=== PATIENT | male | born 1935 | race African-American/Black ===

== ENCOUNTER 2019-03-13 12:14 | Inpatient (IN) | payer MEDICARE, MEDICAID ==
[~2019-03-13] VITALS: Ht 188 cm; Wt 84.8 kg
[2019-03-13] MEDS ORDERED: SODIUM CHLORIDE 0.9% 1,000 ML IV ONE (13:00)
[2019-03-13 13:18] LABS: BASOPHILS % 0.5 % (0.0-2.0); EOSINOPHILS % 0.1 % (0.0-5.0); HEMATOCRIT. 35.9 % (42.0-52.0); HEMOGLOBIN. 12.1 g/dL (14.0-18.0); LYMPHOCYTES % 10.3 % (20.0-50.0); MEAN CORPUSCULAR HEMOGLOBIN 29.3 pg (28.0-32.0); MEAN CORPUSCULAR VOLUME 86.6 fL (80.0-94.0); MEAN PLATELET VOLUME 7.6 fl (7.4-10.4); MONOCYTES % 9.1 % (2.0-8.0); PLATELET 272 x1000/uL (130-400); RED BLOOD CELL COUNT 4.14 mill/uL (4.7-6.1); RED CELL DISTRIBUTION WIDTH 15.3 % (11.6-14.6)
[2019-03-13 13:22] LABS: CHLORIDE 107 mEq/L (98-107)
[2019-03-13 13:23] LABS: INR 1.2; PROTHROMBIN TIME 12.2 sec (9.6-11.0)
[2019-03-13 16:59] LABS: CLARITY URINE CLEAR (CLEAR); COLOR URINE DARK YELLOW (YELLOW); KETONES URINE NEGATIVE (NEGATIVE); LEUKOCYTE ESTERASE URINE NEGATIVE (NEGATIVE); NITRITE URINE NEGATIVE (NEGATIVE); OCCULT BLOOD URINE TRACE (NEGATIVE); PROTEIN URINE 2+ (NEGATIVE)
[2019-03-13] MEDS ORDERED: MORPHINE SULFATE 4 MG/ML CPJ (NOT FOR IM USE) IV ONE (17:45)
[2019-03-13] MEDS ORDERED: KETOROLAC 30MG/ML VIAL IV NR (19:00)
[2019-03-13 23:10] VITALS: BP 114/63
[2019-03-14] VITALS: BP 114/63
[2019-03-14] MEDS ORDERED: ONDANSETRON HCL 4MG/2ML INJ IV PRN
[2019-03-14] MEDS ORDERED: SODIUM CHL 0.45% + KCL 20MEQ/L 1,000 ML IV SCH (02:00)
[2019-03-14] MEDS ORDERED: FURO40TA5 MT (02:22)
[2019-03-14] MEDS ORDERED: CALC-988 MT (02:22)
[2019-03-14] MEDS ORDERED: ATOR20TA65 MT (02:22)
[2019-03-14] MEDS ORDERED: CHOL100022 MT (02:22)
[2019-03-14] MEDS ORDERED: PANT40TA4 MT (02:22)
[2019-03-14] MEDS ORDERED: FINA5TAB11 MT (02:22)
[2019-03-14] MEDS ORDERED: AMI2 MT (02:22)
[2019-03-14] MEDS ORDERED: BICA50TA7 MT (02:22)
[2019-03-14] MEDS ORDERED: BENA40TA9 MT (02:22)
[2019-03-14] MEDS ORDERED: AMLO5TAB88 MT (02:22)
[2019-03-14] MEDS ORDERED: TAMS0.4C31 MT (02:22)
[2019-03-14] MEDS ORDERED: CARV3.1242 MT (02:22)
[2019-03-14] MEDS: DEXT 5%/0.45% NACL KCL 20MEQ/L 1,000 ML IV SCH ×2 (03:24→16:47)
[2019-03-14 04:00] VITALS: BP 116/59
[2019-03-14 06:25] LABS: BASOPHILS % 0.2 % (0.0-2.0); HEMATOCRIT. 30.7 % (42.0-52.0); HEMOGLOBIN. 10.9 g/dL (14.0-18.0); LYMPHOCYTES % 15.7 % (20.0-50.0); MEAN CORPUSCULAR HEMOGLOBIN 29.7 pg (28.0-32.0); MEAN CORPUSCULAR VOLUME 83.6 fL (80.0-94.0); MEAN PLATELET VOLUME 7.7 fl (7.4-10.4); MONOCYTES % 13.9 % (2.0-8.0); NEUTROPHILS % 70.2 % (40.0-76.0); PLATELET 224 x1000/uL (130-400); RED BLOOD CELL COUNT 3.67 mill/uL (4.7-6.1); RED CELL DISTRIBUTION WIDTH 15.2 % (11.6-14.6)
[2019-03-14 06:48] LABS: CHLORIDE 108 mEq/L (98-107)
[2019-03-14] MEDS ORDERED: POTASSIUM CHLORIDE 20MEQ TABLET SR PO SCH (07:15)
[2019-03-14] MEDS ORDERED: PNEUMOCOCCAL 23-VAL P-SAC VAC 0.5 ML IM ONE (08:00)
[2019-03-14] MEDS: FAMOTIDINE 20MG/2ML VIAL IV SCH ×2 (10:15→21:19)
[2019-03-14] MEDS: HEPARIN 5000 UNITS/ML VIAL SUBCUT SCH ×2 (10:15→21:21)
[2019-03-14] MEDS: HYDROMORPHONE HCL/PF 2MG/ML CPJ IV PRN ×2 (10:33→18:39)
[2019-03-14 12:00] VITALS: BP_SYST 109; BP_SYST 118; BP_DIAS 60; BP_DIAS 69
[2019-03-14 12:24] LABS: BG BASE EXCESS -0.8 mmol/L (-2.0-2.0); BG CARBOXYHEMOGLOBIN 0.4 % (0.5-1.5); BG DEOXYHEMOGLOBIN 6.9 % (0.0-5.0); BG FRACTION INSPIRED OXYGEN 21; BG HCO3 ACT 23.2 mmol/L (22.0-26.0); BG METHEMOGLOBIN 0.5 % (0.0-1.5); BG OXYHEMOGLOBIN 92.2 % (94.0-97.0); BG PCO2 36.4 mmHg (35.0-45.0); BG PH 7.423 (7.350-7.450); BG PO2 67.2 mmHg (75.0-100.0); BG SAMPLE SITE RIGHT BRACHIAL; BG TOTAL HEMOGLOBIN 11.8 g/dL (12.0-18.0); BG VENT MODE ROOM AIR
[2019-03-14 16:00] VITALS: BP 131/73
[2019-03-14] MEDS ORDERED: LACTULOSE 20G/30ML UDC PO NR (16:00)
[2019-03-14 20:00] VITALS: BP 132/64
[2019-03-14] MEDS ORDERED: LACTULOSE 20G/30ML UDC PO PRN (21:00)
[2019-03-15] VITALS: BP 108/62
[2019-03-15 04:00] VITALS: BP 127/73
[2019-03-15 07:03] LABS: HEMATOCRIT 30.2 % (42.0-52.0); HEMOGLOBIN 10.6 g/dL (14.0-18.0); MEAN CORPUSCULAR HEMOGLOBIN 29.6 pg (28.0-32.0); MEAN CORPUSCULAR VOLUME 84.4 fL (80.0-94.0); PLATELET 241 x1000/uL (130-400); RED BLOOD CELL COUNT 3.58 mill/uL (4.7-6.1); RED CELL DISTRIBUTION WIDTH 15.2 % (11.6-14.6)
[2019-03-15 07:34] LABS: CHLORIDE 108 mEq/L (98-107)
[2019-03-15 08:00] VITALS: BP 134/75
[2019-03-15] MEDS: HEPARIN 5000 UNITS/ML VIAL SUBCUT SCH (08:41)
[2019-03-15] MEDS: FAMOTIDINE 20MG/2ML VIAL IV SCH (08:41)
[2019-03-15] MEDS: DEXT 5%/0.45% NACL KCL 20MEQ/L 1,000 ML IV SCH (10:50)
[2019-03-15 11:56] VITALS: BP 117/66
[2019-03-15 15:50] VITALS: BP 132/73
[2019-03-15 20:45] VITALS: BP 104/65
== END 2019-03-15 21:00 | DRG 640 ==
LOC: ER 13:29 → 6EST 18:15 → EDBEDREQSVC 18:22 → EDBEDREQ 18:22 → CANBEDREQ 19:06 → ENRESERV 22:15
PROVIDERS: ADMIT Internal Medicine; ATTEND Internal Medicine
DX: E87.6 Hypokalemia (principal); G93.41 Metabolic encephalopathy; C79.51 Secondary malignant neoplasm of bone; D68.59 Other primary thrombophilia; J98.11 Atelectasis; E44.0 Moderate protein-calorie malnutrition; C61 Malignant neoplasm of prostate; D64.9 Anemia, unspecified; E86.0 Dehydration; I10 Essential (primary) hypertension; K56.41 Fecal impaction; K57.90 Diverticulosis of intestine, part unspecified, without perforation or abscess without bleeding; N28.1 Cyst of kidney, acquired; N40.0 Benign prostatic hyperplasia without lower urinary tract symptoms; Z85.07 Personal history of malignant neoplasm of pancreas; Z85.46 Personal history of malignant neoplasm of prostate; Z68.24 Body mass index [BMI] 24.0-24.9, adult; R62.7 Adult failure to thrive; R73.9 Hyperglycemia, unspecified
CPT/HCPCS: 36415; 36600; 71045; 71250; 74176; 80048; 82375; 82805; 83036; 84153; 85027; 90732; 93005; 93970; 96361; 96365; 96375; 97162; 99285; C1893; J1170; J1644; J1885; J2270; J3480; J3490; J7030; G0103